=== PATIENT | male | born 1970 | race Caucasian/White ===

== ENCOUNTER 2016-10-11 18:14 | Emergency (ER) | payer OTHER ==
[2016-10-11 18:27] VITALS: BP 109/71; PULSE 95; TEMP 98.1; BMI 21.8
[2016-10-11] MEDS ORDERED: KETOROLAC TROMETHAMINE 60 MG/2 ML VIAL IM ONE (18:58)
[2016-10-11] MEDS ORDERED: diazePAM 5 MG TABLET PO ONE (19:01)
[2016-10-11] MEDS ORDERED: KETOROLAC TROMETHAMINE 60 MG/2 ML VIAL ONE (19:05)
[2016-10-11] MEDS ORDERED: diazePAM 5 MG TABLET ONE (19:06)
--- NOTE | 2016-10-11 19:23 | PDOC ---
History of Present Illness - General Chief Complaint: Back Pain Stated Complaint: BACK PAIN/BOTH LEGS PAIN/HURTS WHEN BREATHING Time Seen by Provider: 10/11/16 18:46 History Source: Patient - History of Present Illness Occurred: reports: other Pain Location: reports: back Past History - Past Medical History Allergies/Adverse Reactions: Allergies Allergy/AdvReac Type Severity Reaction Status Date / Time No Known Allergies Allergy Verified 07/06/13 19:32 Home Medications: Ambulatory Orders Acetaminophen W/ Codeine #3 [Tylenol # 3 -] 1 tab PO Q6H PRN #14 tablet No Home Medications 0 dose .ROUTE UTDICT 07/06/13 Cyclobenzaprine HCl [Flexeril 10 mg] 10 mg PO TID PRN #9 tablet 10/11/16 Ibuprofen [Motrin -] 800 mg PO Q6H #30 tablet 10/11/16 Lidocaine 5% Patch [Lidoderm Patch -] 1 patch TP DAILY #7 patch 10/11/16 Other medical history: DENIES - Psycho/Social/Smoking Cessation Hx Anxiety: No Suicidal Ideation: No Smoking History: Current every day smoker Number of Cigarettes Smoked Daily: 20 Information on smoking cessation initiated: No Hx Alcohol Use: No Drug/Substance Use Hx: No Substance Use Type: None Review of Systems - Review of Systems Constitutional: No: Chills, Fever : No: Burning, Dysuria, Flank Pain, Hematuria Musculoskeletal: Yes: Back Pain Neurological: No: Numbness, Tingling, Weakness *Physical Exam - Vital Signs Last Vital Signs Temp Pulse Resp BP Pulse Ox 98.1 F 95 H 20 109/71 97 10/11/16 18:22 10/11/16 18:22 10/11/16 18:22 10/11/16 18:22 10/11/16 18:22 - Physical Exam General Appearance: Yes: Appropriately Dressed, Moderate Distress HEENT: positive: Normal Voice Neck: positive: Supple Respiratory/Chest: negative: Respiratory Distress Gastrointestinal/Abdominal: positive: Soft. negative: Tender Musculoskeletal: positive: Other (+ttp tp L lumbar area w/ minimal swelling). 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 Also reports some swelling to site. No LE weakness, sensory changes, b/b incontinence or saddle anesthesia, Took multiple otc meds w/ no relief See exam Lower back pain s/p heavy lifting M/l strain vs spasm No red flags at this time, i.e cauda equina, infxn, renal colic -pain control in ED and reassess 10/11/16 19:23 10/11/16 19:48 Pt reports feeling better. Rxs sent to pharmacy. Pt to follow up with his PMD if pain persists *DC/Admit/Observation/Transfer Diagnosis at time of Disposition: Back strain Qualifiers: Encounter type: initial encounter Qualified Code(s): S39.012A - Strain of muscle, fascia and tendon of lower back, initial encounter - Discharge Dispostion Disposition: HOME Condition at time of disposition: Improved - Prescriptions Prescriptions: Cyclobenzaprine HCl [Flexeril 10 mg] 10 mg PO TID PRN #9 tablet PRN Reason: Back Pain Lidocaine 5% Patch [Lidoderm Patch -] 1 patch TP DAILY #7 patch Ibuprofen [Motrin -] 800 mg PO Q6H #30 tablet - Patient Instructions Printed Discharge Instructions: DI for Back Strain or Sprain Additional Instructions: Take medications as directed and follow up with your PMD as needed
[2016-10-11] MEDS ORDERED: LIDOCAINE 5% TOPICAL PATCH TP ONE (19:46)
[2016-10-11] MEDS ORDERED: LIDOCAINE 5% TOPICAL PATCH ONE (19:46)
== END 2016-10-11 20:00 | disposition home or self-care (01) ==
LOC: JERFT 18:14
PROC: 3E0233Z Introduction of Anti-inflammatory into Muscle, Percutaneous Approach (ICD-10-PCS; principal; 2016-10-11)
DX: S39.012A Strain of muscle, fascia and tendon of lower back, initial encounter (principal); X50.0XXA Overexertion from strenuous movement or load, initial encounter; X50.9XXA Other and unspecified overexertion or strenuous movements or postures, initial encounter; Y93.F2 Activity, caregiving, lifting; Y92.038 Other place in apartment as the place of occurrence of the external cause
CPT/HCPCS: 96372; 99281-25

== ENCOUNTER 2018-11-02 16:56 | Emergency (ER) | payer SELFPAY, OTHER | END 2018-11-02 18:15 | disposition home or self-care (01) | LOC: FER 16:56 ==

== ENCOUNTER 2020-12-04 06:37 | Emergency (ER) | payer OTHER ==
[2020-12-04 07:13] VITALS: BP 118/70; PULSE 84; TEMP 97.6; BMI 23.6
[2020-12-04] MEDS ORDERED: DEXAMETHASONE LIQUID 0.5 MG/5 ML PO ONE (07:38)
[2020-12-04] MEDS ORDERED: DEXAMETHASONE SOD PHOSPHATE 10 MG/1 ML VIAL ONE (07:39)
== END 2020-12-04 07:43 | disposition home or self-care (01) ==
LOC: JER 06:37 → JERFT 06:37
DX: J02.9 Acute pharyngitis, unspecified (principal); H92.02 Otalgia, left ear; R51.9 Headache, unspecified
CPT/HCPCS: 99283-25

== ENCOUNTER 2020-12-06 16:10 | Emergency (ER) | payer OTHER ==
[2020-12-06 16:19] VITALS: BP 119/69; PULSE 82; TEMP 100.2; BMI 23.6
[2020-12-06] MEDS ORDERED: ACETAMINOPHEN 1000 MG/100 ML VIAL (NON FORMULARY) IVPB ONE (18:03)
[2020-12-06] MEDS ORDERED: SODIUM CHLORIDE 1,000 ML IV STA (18:03)
[2020-12-06] MEDS ORDERED: ONDANSETRON 4 MG/2 ML VIAL IVPUSH ONE (18:04)
[2020-12-06 19:09] LABS: BASO % 0.6 % (0-2.0); EOS % 0.3 % (0-4.5); HEMATOCRIT 38.2 % (35.4-49); LYMPH % 8.2 % (8-40); MCH 28.7 pg (25.7-33.7); MEAN CELL VOLUME 84.5 fl (80-96); MEAN PLT VOLUME 6.9 fl (7.5-11.1); MONO % 4.9 % (3.8-10.2); PLATELET COUNT 232 10^3/uL (134-434); RBC 4.52 M/mm3 (4.00-5.60); RDW 14.3 % (11.9-15.9); WHITE BLOOD COUNT 8.1 K/mm3 (4.0-10.0)
[2020-12-06 19:31] LABS: CALCIUM 8.7 mg/dL (8.5-10.1)
[2020-12-06 19:32] LABS: ALBUMIN 3.5 g/dl (3.4-5.0); BLOOD UREA NITROGEN 21.4 mg/dL (7-18)
[2020-12-06 19:37] LABS: BILIRUBIN,TOTAL 0.7 mg/dL (0.2-1); TOT PROT 6.9 g/dl (6.4-8.2)
== END 2020-12-06 20:36 | disposition home or self-care (01) ==
LOC: JCOVINFU 16:10 → JER 16:10
PROC: 3E0333Z Introduction of Anti-inflammatory into Peripheral Vein, Percutaneous Approach (ICD-10-PCS; principal; 2020-12-06)
PROC: 3E033GC Introduction of Other Therapeutic Substance into Peripheral Vein, Percutaneous Approach (ICD-10-PCS; 2020-12-06)
PROC: 3E0337Z Introduction of Electrolytic and Water Balance Substance into Peripheral Vein, Percutaneous Approach (ICD-10-PCS; 2020-12-06)
DX: R51.9 Headache, unspecified (principal); Z11.52 Encounter for screening for COVID-19
CPT/HCPCS: 36415; 71046-TC-FY; 80053; 83605; 85025; 87804; 87880; 99284-25; C9803; J0131; U0003; U0005

== ENCOUNTER 2020-12-16 21:17 | Emergency (ER) | payer OTHER ==
[2020-12-16 21:23] VITALS: BP 152/80; PULSE 94; BMI 23.0
[2020-12-16] MEDS ORDERED: KETOROLAC TROMETHAMINE 30 MG/1 ML VIAL IM ONE (21:27)
[2020-12-16] MEDS ORDERED: KETOROLAC TROMETHAMINE 30 MG/1 ML VIAL ONE (21:50)
== END 2020-12-16 22:43 | disposition home or self-care (01) ==
LOC: JERFT 21:17
PROC: 3E0233Z Introduction of Anti-inflammatory into Muscle, Percutaneous Approach (ICD-10-PCS; principal; 2020-12-16)
DX: M54.41 Lumbago with sciatica, right side (principal)
CPT/HCPCS: 99283-25

== ENCOUNTER 2020-12-18 11:19 | Emergency (ER) | payer OTHER ==
[2020-12-18 11:30] VITALS: BP 124/73; PULSE 87; TEMP 98.1; BMI 23.6
[2020-12-18] MEDS ORDERED: METHOCARBAMOL 500 MG TABLET PO ONE (12:00)
[2020-12-18] MEDS ORDERED: METHOCARBAMOL 500 MG TABLET ONE (12:07)
[2020-12-18 12:55] LABS: EPI CELLS >36 /uL (0-25.1); HYALINE CASTS 8 /uL (0-3.1); URINE APPEARANCE CLOUDY; URINE BACTERIA 2155 /uL (0-1359); URINE BILIRUBIN NEGATIVE (NEGATIVE); URINE COLOR YELLOW; URINE GLUCOSE (UA) NEGATIVE (NEGATIVE); URINE KETONE NEGATIVE (NEGATIVE); URINE LEUK ESTERASE 1+ (NEGATIVE); URINE NITRITE NEGATIVE (NEGATIVE); URINE PROTEIN TRACE (NEGATIVE); URINE RBC 13 /uL (0-23.9); URINE WBC 93 /uL (0-25.8)
[2020-12-18 13:39] LABS: URINE CRYSTALS MODERATE /hpf
== END 2020-12-18 13:12 | disposition home or self-care (01) ==
LOC: JER 11:19 → JERFT 11:19
DX: R30.0 Dysuria (principal); M62.838 Other muscle spasm
CPT/HCPCS: 81003; 87086; 99283-25

== ENCOUNTER 2020-12-21 07:10 | Emergency (ER) | payer OTHER ==
[2020-12-21 07:21] VITALS: BMI 23.7
[2020-12-21 09:30] LABS: BASO % 1.2 % (0-2.0); EOS % 4.2 % (0-4.5); HEMATOCRIT 33.6 % (35.4-49); HEMOGLOBIN 11.5 GM/dL (11.7-16.9); LYMPH % 15.2 % (8-40); MCH 29.2 pg (25.7-33.7); MCHC 34.1 g/dl (32.0-35.9); MEAN CELL VOLUME 85.6 fl (80-96); MEAN PLT VOLUME 6.4 fl (7.5-11.1); MONO % 6.8 % (3.8-10.2); NEUT % 72.6 % (42.8-82.8); PLATELET COUNT 359 10^3/uL (134-434); RBC 3.93 M/mm3 (4.00-5.60); RDW 14.7 % (11.9-15.9); WHITE BLOOD COUNT 6.2 K/mm3 (4.0-10.0)
[2020-12-21 09:59] LABS: CALCIUM 8.5 mg/dL (8.5-10.1)
[2020-12-21 10:00] LABS: ALBUMIN 3.2 g/dl (3.4-5.0); BLOOD UREA NITROGEN 18.8 mg/dL (7-18); MAGNESIUM 2.2 mg/dL (1.8-2.4)
[2020-12-21 10:02] LABS: PHOSPHOROUS 3.2 mg/dL (2.5-4.9)
[2020-12-21 10:03] LABS: CREATININE 1.1 mg/dL (0.55-1.3)
[2020-12-21 10:04] LABS: BILIRUBIN,TOTAL 0.2 mg/dL (0.2-1); TOT PROT 7.2 g/dl (6.4-8.2)
[2020-12-21 12:37] VITALS: BP 122/78; PULSE 64; TEMP 97.3
[2020-12-25 14:07] LABS: IgG Ab 23 kDa Band Absent (.); IgG Ab 28 kDa Band Absent (.)
== END 2020-12-21 12:37 | disposition home or self-care (01) ==
LOC: JER 07:10
DX: G51.0 Bell's palsy (principal); R29.810 Facial weakness
CPT/HCPCS: 36415; 70450-TC; 80053; 83036; 83735; 84100; 84443; 85025; 85730; 86618; 93005; 93010; 99284-25; C9803; U0003; U0005

== ENCOUNTER 2021-05-25 10:55 | Emergency (ER) | payer OTHER ==
[2021-05-25 11:24] VITALS: BP 101/64; PULSE 86; TEMP 97.7; BMI 22.3
[2021-05-25] MEDS ORDERED: KETOROLAC TROMETHAMINE 30 MG/1 ML VIAL IM ONE (12:01)
[2021-05-25] MEDS ORDERED: METHOCARBAMOL 500 MG TABLET PO ONE (12:01)
[2021-05-25] MEDS ORDERED: KETOROLAC TROMETHAMINE 30 MG/1 ML VIAL ONE (12:10)
[2021-05-25] MEDS ORDERED: METHOCARBAMOL 500 MG TABLET ONE (12:10)
== END 2021-05-25 15:15 | disposition home or self-care (01) ==
LOC: JERFT 10:55
PROC: 3E023GC Introduction of Other Therapeutic Substance into Muscle, Percutaneous Approach (ICD-10-PCS; principal; 2021-05-25)
DX: M25.512 Pain in left shoulder (principal)
CPT/HCPCS: 73030-TC-LT-FY; 99284-25

== ENCOUNTER 2022-06-27 08:31 | Emergency (ER) | payer OTHER ==
[2022-06-27 08:41] VITALS: BP 110/76; PULSE 125; RESP 20; TEMP 97.4; BMI 23.0
[2022-06-27 10:21] LABS: INR 1.15 (0.83-1.09); PROTHROMBIN TIME (PATIENT) 13.3 SEC (9.7-13.0)
[2022-06-27 10:28] LABS: BASO % 0.7 % (0-2.0); EOS % 2.2 % (0-4.5); HEMATOCRIT 44.1 % (35.4-49); HEMOGLOBIN 14.8 GM/dL (11.7-16.9); LYMPH % 14.6 % (8-40); MCH 28.7 pg (25.7-33.7); MCHC 33.5 g/dl (32.0-35.9); MEAN CELL VOLUME 85.4 fl (80-96); MEAN PLT VOLUME 7.6 fl (7.5-11.1); MONO % 6.9 % (3.8-10.2); NEUT % 75.6 % (42.8-82.8); PLATELET COUNT 344 10^3/uL (134-434); RBC 5.16 M/mm3 (4.00-5.60); RDW 14.4 % (11.9-15.9); WHITE BLOOD COUNT 11.2 K/mm3 (4.0-10.0)
[2022-06-27 10:32] LABS: CALCIUM 9.2 mg/dL (8.5-10.1)
[2022-06-27 10:33] LABS: ALBUMIN 3.5 g/dl (3.4-5.0)
[2022-06-27 10:36] LABS: CREATININE 1.1 mg/dL (0.55-1.3)
[2022-06-27 10:37] LABS: BILIRUBIN,TOTAL 0.7 mg/dL (0.2-1); TOT PROT 7.4 g/dl (6.4-8.2)
== END 2022-06-27 14:21 | disposition home or self-care (01) ==
LOC: JER 08:31
DX: M71.22 Synovial cyst of popliteal space [Baker], left knee (principal)
CPT/HCPCS: 0241U-QW; 36415; 71046-TC-FY; 71275-TC; 80053; 84484; 85025; 85379; 85610; 93005; 93010; 93971-TC; 99285-25; Q9967

== ENCOUNTER 2022-10-12 11:27 | Emergency (ER) | payer OTHER ==
[2022-10-12 11:30] VITALS: BP 108/73; PULSE 96; RESP 18; TEMP 97.1; BMI 23.0
[2022-10-12] MEDS ORDERED: IBUPROFEN 600 MG TABLET (FP) PO ONE ×2 (12:07→12:49)
== END 2022-10-12 14:23 | disposition home or self-care (01) ==
LOC: JER 11:27
DX: M25.571 Pain in right ankle and joints of right foot (principal); R22.41 Localized swelling, mass and lump, right lower limb
CPT/HCPCS: 73610-TC-RT-FY; 99283-25

== ENCOUNTER 2022-12-16 06:26 | Emergency (ER) | payer OTHER ==
[2022-12-16 07:14] VITALS: BP 116/75; PULSE 64; RESP 18; TEMP 97.5; BMI 23.0
[2022-12-16] MEDS ORDERED: KETOROLAC TROMETHAMINE 30 MG/1 ML VIAL IM ONE (08:09)
[2022-12-16] MEDS ORDERED: diazePAM 5 MG TABLET PO ONE (08:09)
[2022-12-16] MEDS ORDERED: diazePAM 5 MG TABLET ONE (08:13)
[2022-12-16] MEDS ORDERED: KETOROLAC TROMETHAMINE 30 MG/1 ML VIAL ONE (08:13)
== END 2022-12-16 10:21 | disposition home or self-care (01) ==
LOC: JER 06:26
PROC: 3E0233Z Introduction of Anti-inflammatory into Muscle, Percutaneous Approach (ICD-10-PCS; principal; 2022-12-16)
DX: M25.512 Pain in left shoulder (principal); X50.0XXA Overexertion from strenuous movement or load, initial encounter; Y93.H3 Activity, building and construction; Y92.69 Other specified industrial and construction area as the place of occurrence of the external cause
CPT/HCPCS: 73000-TC-LT-FY; 73030-TC-LT-FY; 99284-25

== ENCOUNTER 2022-12-31 16:33 | Emergency (ER) | payer OTHER ==
[2022-12-31 16:38] VITALS: BP 109/71; PULSE 88; RESP 18; TEMP 97; BMI 23.0
[2022-12-31] MEDS ORDERED: ACETAMINOPHEN 500 MG TABLET (FP) PO ONE (16:46)
[2022-12-31] MEDS ORDERED: ACETAMINOPHEN 500 MG TABLET (FP) ONE (16:47)
[2022-12-31] MEDS ORDERED: DIPHTH,PERTUSS(ACELL),TET 0.5 ML DISP.SYRIN IM ONE ×2 (17:12→17:24)
== END 2022-12-31 17:44 | disposition home or self-care (01) ==
LOC: JERFT 16:33
PROC: 3E0234Z Introduction of Serum, Toxoid and Vaccine into Muscle, Percutaneous Approach (ICD-10-PCS; principal; 2022-12-31)
DX: S50.852A Superficial foreign body of left forearm, initial encounter (principal); W45.8XXA Other foreign body or object entering through skin, initial encounter
CPT/HCPCS: 90471; 90715; 99283-25

== ENCOUNTER 2023-06-09 07:01 | Emergency (ER) | payer OTHER ==
[2023-06-09 07:17] VITALS: BP 113/67; PULSE 83; RESP 18; TEMP 98.9; BMI 25.4
[2023-06-09] MEDS ORDERED: IBUPROFEN 400 MG TABLET (FP) PO ONE ×2 (07:54→08:04)
== END 2023-06-09 09:36 | disposition home or self-care (01) ==
LOC: JER 07:01
DX: R22.42 Localized swelling, mass and lump, left lower limb (principal); M25.572 Pain in left ankle and joints of left foot; S93.402A Sprain of unspecified ligament of left ankle, initial encounter; W18.40XA Slipping, tripping and stumbling without falling, unspecified, initial encounter; X50.1XXA Overexertion from prolonged static or awkward postures, initial encounter; Y92.480 Sidewalk as the place of occurrence of the external cause
CPT/HCPCS: 73610-TC-LT-FY; 73630-TC-LT; 99283-25

== ENCOUNTER 2023-07-23 08:29 | Emergency (ER) | payer OTHER ==
[2023-07-23 08:38] VITALS: BP 126/84; PULSE 82; RESP 18; TEMP 97.7; BMI 23.7
[2023-07-23] MEDS ORDERED: KETOROLAC TROMETHAMINE 30 MG/1 ML VIAL ONE (10:44)
[2023-07-23] MEDS: KETOROLAC TROMETHAMINE 30 MG/1 ML VIAL IM ONE (11:18)
[2023-07-23 11:43] LABS: EOS % 5.2 % (0-4.5); HEMATOCRIT 43.1 % (35.4-49); HEMOGLOBIN 14.4 GM/dL (11.7-16.9); LYMPH % 18.3 % (8-40); MCH 28.7 pg (25.7-33.7); MCHC 33.3 g/dl (32.0-35.9); MEAN CELL VOLUME 86.1 fl (80-96); MEAN PLT VOLUME 6.9 fl (7.5-11.1); MONO % 6.6 % (3.8-10.2); NEUT % 68.9 % (42.8-82.8); PLATELET COUNT 319 10^3/uL (134-434); RBC 5.01 M/mm3 (4.00-5.60); RDW 14.1 % (11.9-15.9)
[2023-07-23 11:56] LABS: POTASSIUM 4.6 mmol/L (3.5-5.1)
[2023-07-23 12:01] LABS: ALBUMIN 3.7 g/dl (3.4-5.0); BLOOD UREA NITROGEN 19.8 mg/dL (7-18); CALCIUM 9.4 mg/dL (8.5-10.1)
[2023-07-23 12:04] LABS: URIC ACID 5.3 mg/dL (2.6-7.2)
[2023-07-23 12:06] LABS: BILIRUBIN,TOTAL 0.5 mg/dL (0.2-1); TOT PROT 7.6 g/dl (6.4-8.2)
== END 2023-07-23 13:15 | disposition home or self-care (01) ==
LOC: JER 08:29
PROC: 3E0233Z Introduction of Anti-inflammatory into Muscle, Percutaneous Approach (ICD-10-PCS; principal; 2023-07-23)
DX: M25.561 Pain in right knee (principal); M25.461 Effusion, right knee
CPT/HCPCS: 36415; 73562-TC-RT-FY; 80053; 84550; 85025; 93971-TC; 96372; 99284-25

== ENCOUNTER 2025-02-10 08:07 | Emergency (ER) | payer OTHER ==
[2025-02-10 08:15] VITALS: BP 141/69; PULSE 98; RESP 18; TEMP 97.8; BMI 23.6
[2025-02-10] MEDS ORDERED: ACETAMINOPHEN 325 MG TABLET (FP) ONE (08:48)
[2025-02-10] MEDS: ACETAMINOPHEN 500 MG TABLET (FP) PO ONE (09:02)
== END 2025-02-10 11:03 | disposition home or self-care (01) ==
LOC: JER 08:07
DX: M25.562 Pain in left knee (principal); M25.531 Pain in right wrist; M25.511 Pain in right shoulder; M25.462 Effusion, left knee; W11.XXXA Fall on and from ladder, initial encounter; Y92.009 Unspecified place in unspecified non-institutional (private) residence as the place of occurrence of the external cause
CPT/HCPCS: 73110-TC-RT-FY; 73130-TC-RT-FY; 73562-TC-LT-FY; 76882-TC-LT; 99284-25